=== PATIENT | female | born 1990 | race Caucasian/White ===

== ENCOUNTER 2016-08-06 15:04 | Emergency (ER) | payer OTHER ==
[~2016-08-06] VITALS: Ht 157.5 cm; Wt 61.5 kg
[2016-08-06 15:12] VITALS: Ht 157.5 cm; Wt 61.5 kg
[2016-08-06 16:03] LABS: URINE BLOOD (Dip) POC Negative (NEGATIVE)
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
[2016-08-06] MEDS ORDERED: IBUP-1542 PO (17:03)
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
== END 2016-08-06 17:14 | disposition home or self-care (01) ==
LOC: FTE 15:04
DX: S33.5XXA Sprain of ligaments of lumbar spine, initial encounter (principal); V49.49XA Driver injured in collision with other motor vehicles in traffic accident, initial encounter
CPT/HCPCS: 71010; 72100; 81003; Z7502